=== PATIENT | female | born 1985 | race African-American/Black ===

== ENCOUNTER 2017-01-11 23:20 | Emergency (ER) | payer MEDICAID | END 2017-01-13 01:36 | disposition home or self-care (01) | LOC: D.ER 23:20 | DX: K21.9 Gastro-esophageal reflux disease without esophagitis (principal) ==

== ENCOUNTER → 2019-06-15 13:08 | Outpatient (CLI) | payer MEDICAID | END | disposition home or self-care (01) | LOC: D.NM 13:00 | PROVIDERS: ATTEND Family Medicine | DX: R74.8 Abnormal levels of other serum enzymes (principal) ==

== ENCOUNTER → 2019-06-23 11:04 | Outpatient (CLI) | payer MEDICAID ==
[2019-06-23 11:46] LABS: ALBUMIN 3.9 g/dL (3.4-5.0); BILIRUBIN - DIRECT 0.08 mg/dL (0.00-0.30); BILIRUBIN - INDIRECT 0.2 mg/dL (0.00-1.00); BILIRUBIN - TOTAL 0.28 mg/dL (0.2-1.3); CHOL - HDL RATIO 2.5 ratio (2.3-4.1); LDL-HDL RATIO 1.4 ratio (1.5-3.5); PROTEIN - SERUM 7.5 g/dL (6.4-8.2)
[2019-06-23 11:52] LABS: APTT 31.2 SECONDS (22.8-39.4); INR 1.15 (0.85-1.17); PROTIME 14.6 SECONDS (11.6-15.0)
[2019-06-24 08:10] LABS: ALPHA FETOPROTEIN -(TUMOR MRK) 2.4 ng/mL (0.0-8.3); HAPTOGLOBIN 72 mg/dL (33-278)
[2019-06-25 18:30] LABS: MITOCHONDRIAL ANTIBODY <20.0 Units (0.0-20.0); SMOOTH MUSCLE ABS (ACTIN) 15 Units (0-19)
[2019-06-26 12:09] LABS: ANA REFLEX - DIRECT Negative (Negative)
== END | disposition home or self-care (01) ==
LOC: D.LAB 11:04
PROVIDERS: ATTEND Internal Medicine Gastroenterology
DX: R74.8 Abnormal levels of other serum enzymes (principal); R10.10 Upper abdominal pain, unspecified; D64.9 Anemia, unspecified; R11.2 Nausea with vomiting, unspecified

== ENCOUNTER → 2019-06-30 20:16 | Outpatient (CLI) | payer MEDICAID ==
[2019-07-04 18:08] LABS: CREATININE, UR 0.75 g/L (0.30-3.00)
== END | disposition home or self-care (01) ==
LOC: D.LAB 16:33
PROVIDERS: ATTEND Internal Medicine Gastroenterology
DX: E61.0 Copper deficiency (principal); R68.89 Other general symptoms and signs